=== PATIENT | female | born 1990 | race Caucasian/White ===

== ENCOUNTER 2017-02-12 09:48 | Day surgery (SDC) | payer OTHER ==
[~2017-02-12] VITALS: Ht 154.9 cm; Wt 62.6 kg
[~2017-02-12 09:48] MED LIST: IMITREX100 MG PO; MACROBID100 MG PO; ORTHO TRI-CY1 TABLE1 PO; SUMATRIPTAN SU100 MG PO; [UNRECOGNIZED DRUG - REMARK]
[2017-02-12 10:41] VITALS: BP 130/76
[2017-02-12 13:05] VITALS: BP 142/68
[2017-02-12 13:51] VITALS: BP 122/73
[2017-02-12 13:58] VITALS: BP 122/73
== END 2017-02-12 14:08 | disposition home or self-care (01) ==
LOC: SDC 09:48
DX: D06.1 Carcinoma in situ of exocervix (principal); Z80.0 Family history of malignant neoplasm of digestive organs; Z82.49 Family history of ischemic heart disease and other diseases of the circulatory system
CPT/HCPCS: 88305; 88307; J1100; J1885; J2250; J2405; J2765; J3010